=== PATIENT | female | born 1940 | race Caucasian/White ===

== ENCOUNTER → 2016-05-07 | Outpatient (CLI) | payer OTHER, BC ==
[~2016-05-07] MED LIST: ALBU1AER9 INH; ALLO300T2 PO; ASPCH81X PO; ATOR10TA88 PO; CETI10TA10 PO; FAMO20TA11 PO; GLUC10007 PO; LEVO1TAB PO; METO50TA7 PO; MISCCAP80 PO; MULT-845 PO; NXM/40 PO; TRIA37.5 PO
--- NOTE | 2016-05-07 19:17 | DIAGNOSTIC IMAGING REPORT ---
CHEST 2 VIEWS ROUTINE CLINICAL HISTORY: COUGH, FEVER -FLU LIKE- cough. Dyspnea. COMPARISON STUDY: No previous studies for comparison. FINDINGS: The bones soft tissues and hemidiaphragms are normal. The cardiomediastinal silhouette is normal. The lungs are clear. The pulmonary vasculature is normal. IMPRESSION: Negative chest. Electronically signed by: Reji Tate M.D. 05/07/2016 7:16 PM Dictated Date/Time: 05/07/2016 7:16 PM
== END | disposition home or self-care (01) ==
LOC: C.RAD 18:35
PROVIDERS: ATTEND Internal Medicine
DX: R50.9 Fever, unspecified (principal); R05 Cough; J45.909 Unspecified asthma, uncomplicated

== ENCOUNTER → 2016-07-22 | Outpatient (CLI) | payer OTHER, BC ==
[~2016-07-22] MED LIST changes: +ATOR10TA82 PO; -ATOR10TA88 PO
--- NOTE | 2016-07-22 16:06 | MAMMOGRAPHY REPORT ---
BILATERAL DIGITAL SCREENING MAMMOGRAM TOMOSYNTHESIS WITH CAD: 07/22/2016 CLINICAL HISTORY: Asymptomatic. Personal history of breast cancer. TECHNIQUE: Breast tomosynthesis in addition to standard 2D mammography was performed. Current study was also evaluated with a Computer Aided Detection (CAD) system. COMPARISON: Comparison is made to exams dated: 07/20/2015 mammogram, 07/18/2014 mammogram, 06/13/2013 [facility], 05/14/2012 mammogram, 06/13/2010 mammogram, and 06/17/2008 mammogram . BREAST COMPOSITION: The tissue of both breasts is heterogeneously dense, which may obscure small mas ses. FINDINGS: There is evidence of prior surgery in each breast, with expected architectural distortion i n each upper outer quadrant. There are scattered and grouped benign-appearing rim calcifications and mild vascular calcifications in the breasts. No new suspicious mass, architectural distortion or cl uster of microcalcifications is seen. IMPRESSION: ACR BI-RADS CATEGORY 1: NEGATIVE There is no mammographic evidence of malignancy. A 1 year screening mammogram is recommended. The pa tient will receive written notification of the results. Approximately 10% of breast cancers are not detected with mammography. A negative mammographic report should not delay biopsy if a clinically suggestive mass is present. Willow Bueno M.D. ay/:07/22/2016 15:53:16 Fitting Supervisor: Rocío STARKEY)(Josefina), [facility] letter sent: Normal 1/2 BI-RADS Code: ACR BI-RADS Category 1: Negative
== END | disposition home or self-care (01) ==
LOC: C.MAMM 09:27
PROVIDERS: ATTEND Obstetrics & Gynecology
DX: Z12.31 Encounter for screening mammogram for malignant neoplasm of breast (principal); Z08 Encounter for follow-up examination after completed treatment for malignant neoplasm; Z85.3 Personal history of malignant neoplasm of breast